=== PATIENT | female | born 1995 | race Caucasian/White ===

== ENCOUNTER 2019-04-09 05:30 | Inpatient (IN) | payer OTHER ==
[2019-04-09] MEDS ORDERED: NS w/ Oxytocin 10 units 500 ML IV SCH (17:35)
[2019-04-09] MEDS ORDERED: hydrALAZINE 20 MG/ML VIAL SLOW IVP PRN (17:35)
[2019-04-09] MEDS ORDERED: Promethazine HCl 25 MG/ML VIAL IM PRN ×2 (17:35→21:24)
[2019-04-09] MEDS ORDERED: Butorphanol Tartrate 1 MG/ML VIAL SLOW IVP PRN (17:35)
[2019-04-09] MEDS ORDERED: HYDROcodone/Acetaminophen 5/325 mg Tablet PO PRN (17:35)
[2019-04-09] MEDS ORDERED: Diphenoxylate HCl/Atropine Tablet PO PRN (17:35)
[2019-04-09] MEDS ORDERED: Ondansetron PF 4 MG/2 ML Vial IVP PRN ×2 (17:35→21:24)
[2019-04-09] MEDS ORDERED: Methylergonovine 0.2 MG/ML VIAL IM PRN (17:35)
[2019-04-09] MEDS ORDERED: Carboprost 250 MCG/ML AMP IM PRN (17:35)
[2019-04-09] MEDS ORDERED: Ibuprofen 800 MG TAB PO PRN (17:35)
[2019-04-09] MEDS ORDERED: NS / Oxytocin 40 units/1000ml 1,000 ML IV PRN (17:35)
[2019-04-09] MEDS ORDERED: Lidocaine 1% (PF) 30 ML VIAL SC PRN (17:35)
[2019-04-09] MEDS ORDERED: Acetaminophen 500 MG TAB PO PRN (17:35)
[2019-04-09] MEDS ORDERED: Misoprostol 200 MCG TAB PR PRN (17:35)
--- NOTE | 2019-04-09 17:51 | PDOC.LDHP ---
Labor and Delivery H&P Chief complaint: scheduled induction HPI: 24yo at 39w2d by LMP c/w first trimester sono for elective IOL. No complaints, +ctx. Current gestational age (weeks): 39 Due date: 04/14/19 Dating criteria: last menstrual period Grav: 2 Para: 1 Current complications: none Abnormal US findings: No Past Medical History: denies Current medications: pre- vitamins Previous surgical history: none Allergies/Adverse Reactions: Allergies Allergy/AdvReac Type Severity Reaction Status Date / Time acetaminophen [From [place]] AdvReac Intermediate Emesis Verified 04/09/19 17:40 hydrocodone [From [place]] AdvReac Intermediate Emesis Verified 04/09/19 17:40 Social history: none - Physical Exam Vital signs reviewed and normal: yes General: NAD Heart: RRR Lungs: CTAB Abdomen: gravid Extremeties: no edema FHT: category 1 [place] contractions every: 5min - Vaginal Exam cm dilated: 3 Effacement: 50% Station: -2 - OB Labs Blood type: O RH: positive Antibody Screen: negative HIV: negative RPR: negative HEPSAg: negative 1 hour GCT: negative GBS: negative Urine drug screen: negative Rubella: immune - Assessment L&D Assessment: elective induction at term - Plan Plan: admit to L&D, labor augmentation if indicated, informed consent obtained, anesthesia consult for pain management
[2019-04-09 17:57] VITALS: BMI 28.5
[2019-04-09] MEDS: Lactated Ringer's 1,000 ML IV SCH ×3 (18:18→22:10)
[2019-04-09 18:38] LABS: Hemoglobin 10.4 g/dL (12.0-16.0); Mean Corpuscular HGB CONC 33.7 g/dL (32.0-36.0); Mean Corpuscular Hemoglobin 27.5 pg (27.0-31.0); Mean Corpuscular Volume 81.5 fL (78.0-98.0); Mean Platelet Volume 8.8 fL (7.4-10.4); Platelet Count 208 thou/uL (130-400); RBC Distribution Width 14.3 % (11.5-14.5); Red Blood Cell (RBC) Count 3.76 mill/uL (4.20-5.40); White Blood Cell (WBC) Count 12.2 thou/uL (4.8-10.8)
[2019-04-09 19:16] LABS: Hep B Surf Ag Non-Reactive S/CO (NonReactive); Syphilis Antibody Nonreactive (Nonreactive); Syphilis Antibody Index 0.03 S/CO (<1.00 Non-Reactive)
[2019-04-09] MEDS ORDERED: Fentanyl 4 mcg/Bup 0.1% Cadd 100 ML ONE (19:48)
[2019-04-09] MEDS ORDERED: Lactated Ringer's 500 ML IV PRN (21:24)
[2019-04-09] MEDS ORDERED: Naloxone HCl 0.4 mg/ml Vial IVP PRN ×2 (21:24)
[2019-04-09] MEDS ORDERED: ePHEDrine/0.9% NaCl/PF SYRINGE 50 mg/10 ml SLOW IVP PRN (21:24)
[2019-04-09] MEDS ORDERED: Acetaminophen 325 MG TAB PO PRN (21:24)
[2019-04-09] MEDS ORDERED: diphenhydrAMINE 50 MG/ML VIAL IVP PRN (21:24)
[2019-04-09] MEDS ORDERED: Communication Order-Pharmacy FS SCH (21:30)
[2019-04-09] MEDS ORDERED: Fentanyl 4 mcg/Bupivacaine 0.1% Cassette 100 ML EPIDURAL SCH (21:30)
[2019-04-09] MEDS ORDERED: Bupivacaine/Epinephrine 0.25% 30 ML VIAL ONE (23:00)
--- NOTE | 2019-04-09 23:36 | PDOC.OPDEL ---
OB Operative/Delivery Note Delivery Dr/Surgeon: Jenni Assist: n/a Pre-Delivery Diagnosis: elective induction Procedure/Post Delivery Dx: spontaneous vaginal delivery Weeks gestation: 39 Anesthesia: epidural - Findings A Sex: male - 1 min: 9 - 5 min: 9 - Additional Findings/Plan Placenta delivered: spontaneous Repaired Obstetrical Laceration: none Estimated blood loss: 200cc Post delivery plan: routine recovery
--- NOTE | 2019-04-10 00:23 | PDOC.EVN ---
Event Note - Event Note Event Note: PPD#1. Resting. VSS AF Lochia small. Plan: Routine PP care.
[2019-04-10] MEDS ORDERED: Benzocaine-Menthol 82.5 ML CAN TOP PRN (06:16)
[2019-04-10] MEDS ORDERED: HYDROcodone/Acetaminophen 5/325 mg Tablet PO PRN ×2 (06:16)
[2019-04-10] MEDS ORDERED: NS / Oxytocin 40 units/1000ml 1,000 ML IV SCH (06:16)
[2019-04-10] MEDS ORDERED: Milk Of Magnesia 30 ML UDCUP PO PRN (06:16)
[2019-04-10] MEDS ORDERED: Lanolin Ointment 7 GM TUBE TOP PRN (06:16)
[2019-04-10] MEDS ORDERED: Preparation H Ointment 28 GM TUBE PR PRN (06:16)
[2019-04-10] MEDS ORDERED: Promethazine HCl 25 MG/ML VIAL IM PRN (06:16)
[2019-04-10] MEDS ORDERED: diphenhydrAMINE 25 MG CAP PO PRN (06:16)
[2019-04-10] MEDS ORDERED: Ondansetron PF 4 MG/2 ML Vial IVP PRN (06:16)
[2019-04-10] MEDS ORDERED: Bisacodyl 10 MG SUPP PR PRN (06:16)
[2019-04-10] MEDS ORDERED: hydrALAZINE 20 MG/ML VIAL SLOW IVP PRN (06:16)
[2019-04-10] MEDS: Ibuprofen 800 MG TAB PO SCH ×3 (06:34→21:11)
[2019-04-10] MEDS: Prenatal Vitamin 1 TAB PO SCH (08:52)
[2019-04-10] MEDS: Docusate Calcium (SURFAK) 240 MG CAP PO SCH ×2 (08:52→21:11)
[2019-04-10] MEDS: Ferrous Sulfate 325 MG TAB PO SCH ×2 (12:59→16:43)
[2019-04-11] MEDS: Ibuprofen 800 MG TAB PO SCH ×2 (05:39→14:50)
--- NOTE | 2019-04-11 05:39 | PDOC.EVN ---
Event Note - Event Note Event Note: DISCHARGE NOTE Admit date: 04/09/19 Discharge date: 04/11/19 DX: Elective Induction vaginal Delivery Course: Patient of Dr Arteaga, admitted at 39 weeks for elective IOL. Underwent without incident. i evaluated he patinet at bedside on AM of 04/11/19 and found her stable for DSCH. DC to home desired by her. Vitals stable and afebrile. labs reviewed prior to discharge. Routine follow up.
[2019-04-11 08:40] VITALS: BP 101/55; TEMP 97.7
[2019-04-11] MEDS ORDERED: Adacel (T-DAP) 0.5 ML SYRINGE IM ONE (09:00)
[2019-04-11] MEDS: Prenatal Vitamin 1 TAB PO SCH (10:04)
[2019-04-11] MEDS: Docusate Calcium (SURFAK) 240 MG CAP PO SCH (10:05)
[2019-04-11] MEDS: Ferrous Sulfate 325 MG TAB PO SCH (10:05)
== END 2019-04-11 15:18 | disposition home or self-care (01) | DRG 807 ==
LOC: L&D 17:05 → 3SW 04-10 08:19
PROVIDERS: ADMIT Student in an Organized Health Care Education/Training Program; ATTEND Student in an Organized Health Care Education/Training Program
PROC: 10E0XZZ Delivery of Products of Conception, External Approach (ICD-10-PCS; principal; 2019-04-09)
PROC: 10907ZC Drainage of Amniotic Fluid, Therapeutic from Products of Conception, Via Natural or Artificial Opening (ICD-10-PCS; 2019-04-09)
PROC: 3E033VJ Introduction of Other Hormone into Peripheral Vein, Percutaneous Approach (ICD-10-PCS; 2019-04-09)
DX: O80 Encounter for full-term uncomplicated delivery (principal); Z37.0 Single live birth; Z3A.39 39 weeks gestation of pregnancy
CPT/HCPCS: 36415; 51702; 85027; 86780; 86850; 86900; 86901; 87340; J2001; J2590